=== PATIENT | male | born 1995 | race Caucasian/White ===

== ENCOUNTER 2020-04-16 06:56 | Emergency (ER) | payer OTHER ==
[2020-04-16] MEDS ORDERED: NA CHLORIDE 0.9% 1,000 ML ONE (07:20)
[2020-04-16 07:37] LABS: Absolute Lymphocytes (CBC) 1.1 K/uL (0.7-4.9); Basophils % 0.3 % (0-1.3); Hematocrit 38.4 % (39.6-49.0); Lymphocytes % 14.5 % (15.3-44.8); MPV 8.7 fL (7.6-11.3); RBC Red Blood Cell Count 4.18 M/uL (4.33-5.43)
--- NOTE | 2020-04-16 07:44 | RAD REPORT ---
EXAM DESCRIPTION: CT - Head Brain Wo Cont - 04/16/2020 7:34 am CLINICAL HISTORY: CONFUSEDhypotension, bradycardia COMPARISON: No comparisons TECHNIQUE: Axial 5 mm thick images of the head were obtained without IV contrast. All CT scans are performed using dose optimization technique as appropriate and may include automated exposure control or mA/KV adjustment according to patient size. FINDINGS: No intracranial hemorrhage, mass, edema or shift of mid-line structures. No acute cortical based infarction. Sulci are within normal limits for age. Richard matter- white matter junction is stil l present. No diffuse cerebral edema pattern. No abnormal extra-axial fluid collections. Ventricles a re normal in range. Physiologic calcifications are present. Patient is low-lying cerebellar tonsils a s a normal variant. Mastoid air cells and visualized portions of the paranasal sinuses are clear. No acute bony findings. IMPRESSION: Negative non-contrast CT head examination.
[2020-04-16 07:52] LABS: Protime INR 0.98
[2020-04-16 07:53] LABS: ALT/SGPT 21 U/L (12-78); AST/SGOT 18 U/L (15-37); Albumin 3.2 g/dL (3.4-5.0); Alkaline Phosphatase 83 U/L (45-117); BUN Blood Urea Nitrogen 13 mg/dL (7-18); Bicarbonate 26 mmol/L (21-32); Bilirubin Direct < 0.1 mg/dL (0-0.2); Bilirubin Total 0.2 mg/dL (0.2-1.0); Glucose Level 118 mg/dL (74-106); Potassium 3.9 mmol/L (3.5-5.1); Protein, Total 6.5 g/dL (6.4-8.2); Sodium Level 142 mmol/L (136-145)
--- NOTE | 2020-04-16 09:51 | EDPHYS ---
Physician Documentation [facility] Name: Jason Xie Age: 24 yrs Sex: Male : 1995 Arrival Date: 04/16/2020 Time: 06:56 Bed 4 Private MD: ED Physician Kole Bustillos HPI: 04/16 07:13 This 24 yrs old Male presents to ER via EMS with complaints of seizure, rn smoked synthetic marijuana. 07:13 The patient presents with a history of multiple seizures, an unknown number. Character rn of seizure(s): Motor activity: generalized, Incontinence: none, Circulation: the patient did not experience evidence of pulse disturbance. Seizure onset: this morning. Associated injury: Head/face:. Current symptoms: decreased level of consciousness. The patient has experienced similar episodes in the past. Per EMS, friend's mother called 911 for possible seizures, has hx of seizures but has not taken his tegretol for "long time", friend states hit head on bathtub, no LOC, patient reports feels fatigued and dehydrated. Reports smoked synthetic marijuana. . Historical: - Allergies: 07:06 Depakote; rv - Home Meds: 07:06 None [Active]; rv - PMHx: 07:06 None; rv - PSHx: 07:06 None; rv - Immunization history:: Adult Immunizations unknown. - Social history:: Smoking status: Patient reports the use of cigarette tobacco products, smokes one-half pack cigarettes per day. - Family history:: not pertinent. - Hospitalizations: : No recent hospitalization is reported. ROS: 07:13 Constitutional: Negative for fever, chills, and weight loss, Eyes: Negative for injury, rn pain, redness, and discharge, Neck: Negative for injury, pain, and swelling, Cardiovascular: Negative for chest pain, palpitations, and edema, Respiratory: Negative for shortness of breath, cough, wheezing, and pleuritic chest pain, Abdomen/GI: Negative for abdominal pain, nausea, vomiting, diarrhea, and constipation, MS/Extremity: Negative for injury and deformity, Skin: Negative for injury, rash, and discoloration, Neuro: Negative for headache, numbness, tingling Exam: 07:13 Constitutional: This is a well developed, well nourished patient who is awake, alert, rn seems either post-ictal or intoxicated Head/Face: Normocephalic, atraumatic. Eyes: Pupils equal round and reactive to light, extra-ocular motions intact. Lids and lashes normal. Conjunctiva and sclera are non-icteric and not injected. Cornea within normal limits. Periorbital areas with no swelling, redness, or edema. ENT: dry MM Cardiovascular: Regular rate and rhythm. No pulse deficits. Respiratory: No increased work of breathing, no retractions or nasal flaring. Abdomen/GI: soft, non-tender Skin: Warm, dry MS/ Extremity: Pulses equal, no cyanosis. Neurovascular intact. Full, normal range of motion. Equal circumference. Neuro: Awake and alert, GCS 15, oriented to person, place, time, and situation. Cranial nerves II-XII grossly intact. Motor strength 5/5 in all extremities. Sensory grossly intact. Cerebellar exam normal. 08:13 ECG was reviewed by the Attending Physician. rn Vital Signs: 07:05 BP 115 / 85; Pulse 67; Resp 16; Temp 97; Pulse Ox 100% ; Weight 83.91 kg; Height 5 ft. hb 8 in. (172.72 cm); Pain 0/10; 07:56 BP 96 / 62; Pulse 77; Resp 18; Pulse Ox 100% on R/A; em 09:00 BP 131 / 86; Pulse 80; Resp 16; Pulse Ox 100% on R/A; hb 10:00 BP 127 / 89; Pulse 68; Resp 18; Pulse Ox 99% on R/A; em 07:05 Body Mass Index 28.13 (83.91 kg, 172.72 cm) hb MDM: 07:01 Patient medically screened. rn 09:27 Differential diagnosis: seizure, dehydration, seizure. Data reviewed: vital signs, rn nurses notes, lab test result(s), EKG, radiologic studies, and as a result, I will discharge patient. 09:49 Counseling: I had a detailed discussion with the patient and/or guardian regarding: the rn historical points, exam findings, and any diagnostic results supporting the discharge/admit diagnosis, lab results, radiology results, the need for outpatient follow up, to return to the emergency department if symptoms worsen or persist or if there are any questions or concerns that arise at home. Response to treatment: the patient's symptoms have markedly improved after treatment, and as a result, I will discharge patient. 04/16 07:12 Order name: Acetaminophen; Complete Time: 07:56 rn 04/16 07:12 Order name: Basic Metabolic Panel; Complete Time: 07:56 rn 04/16 07:12 Order name: CBC with Diff; Complete Time: 07:56 rn 04/16 07:12 Order name: ETOH Level; Complete Time: 07:56 rn 04/16 07:12 Order name: Hepatic Function; Complete Time: 07:56 rn 04/16 07:12 Order name: PT-INR; Complete Time: 07:56 rn 04/16 07:12 Order name: CT Head Brain wo Cont; Complete Time: 07:46 rn 04/16 07:12 Order name: Ptt, Activated; Complete Time: 07:56 rn 04/16 07:12 Order name: Salicylate; Complete Time: 08:12 rn 04/16 07:12 Order name: Urine Drug Screen rn 04/16 07:12 Order name: EKG; Complete Time: 07:13 rn 04/16 08:41 Order name: Troponin (emerg Dept Use Only); Complete Time: 09:49 rn 04/16 09:22 Order name: Urine Dipstick--Ancillary (enter results) bd 04/16 07:12 Order name: EKG - Nurse/Tech; Complete Time: 09:20 rn 04/16 07:12 Order name: IV Saline Lock; Complete Time: 07:28 rn 04/16 07:12 Order name: Labs collected and sent; Complete Time: 07:28 rn 04/16 07:12 Order name: Urine Dipstick-Ancillary (obtain specimen); Complete Time: 09:20 rn EC:13 Rate is 66 beats/min. Rhythm is regular. QRS [place] is Normal. NC interval is normal. QRS rn interval is normal. QT interval is normal. No Q waves. T waves are Normal. ST Segment is elevated in leads II, III, aVF, V1, V2, V3, V4, V5, V6. Clinical impression: NSR w/ Non-specific ST/T Changes. Interpreted by me. Reviewed by me. Administered Medications: 07:25 Drug: NS 0.9% 1000 ml Route: IV; Rate: 1000 ml; Site: left antecubital; em 10:02 Follow up: IV Status: Completed infusion; IV Intake: 1000ml em Disposition: 04/16/20 09:50 Discharged to Home. Impression: Dehydration, Possible seizure, Synthetic marijuana use. - Condition is Stable. - Discharge Instructions: Dehydration, Adult, Seizure, Adult. - Medication Reconciliation Form, Thank You Letter, Antibiotic Education, Prescription Opioid Use form. - Follow up: Private Physician; When: As needed; Reason: Recheck today's complaints, Re-evaluation by your physician. - Problem is new. - Symptoms have improved. Signatures: Dispatcher [employer] Asher Allen RN RN Kole Sylvester MD MD rn Vicente, Ronaldo, RN RN rv Corrections: (The following items were deleted from the chart) 10:04 09:50 04/16/2020 09:50 Discharged to Home. Impression: Dehydration; Possible seizure; em Synthetic marijuana use. Condition is Stable. Forms are Medication Reconciliation Form, Thank You Letter, Antibiotic Education, Prescription Opioid Use. Follow up: Private Physician; When: As needed; Reason: Recheck today's complaints, Re-evaluation by your physician. Problem is new. Symptoms have improved. rn
--- NOTE | 2020-04-16 09:51 | ER ---
Nurse's Notes [facility] Name: Jason Xie Age: 24 yrs Sex: Male : 1995 Arrival Date: 04/16/2020 Time: 06:56 Bed 4 Private MD: Diagnosis: Dehydration;Possible seizure;Synthetic marijuana use Presentation: 04/16 07:03 Chief complaint: EMS states: PATIENT SMOKE SYNTHETIC MARIJUANA AND HAD A SEIZURE FOR rv 15-30 MINUTES ACCORDING TO THE FRIENDS. PATIENT WAS UNRESPONSIVE AT THE SCENE WITH HEART RATE OF 38 AND BLOOD PRESSURE OF 80/50. GIVEN 450ML BOLUS OF NS, HEART RATED AND BLOOD PRESSURE NORMALIZED. Coronavirus screen: Proceed with normal triage. Ebola Screen: No symptoms or risks identified at this time. Initial Sepsis Screen: Does the patient meet any 2 criteria? No. Patient's initial sepsis screen is negative. Does the patient have a suspected source of infection? No. Patient's initial sepsis screen is negative. Risk Assessment: Do you want to hurt yourself or someone else? Patient reports no desire to harm self or others. Onset of symptoms was April 16, 2020 at 06:30. 07:03 Method Of Arrival: EMS: [facility] 07:03 Acuity: RUPERTO 3 rv Triage Assessment: 07:06 General: Appears unkempt, Behavior is drowsy. Pain: Denies pain. EENT: No signs and/or rv symptoms were reported regarding the EENT system. Neuro: Level of Consciousness is awake, confused. Cardiovascular: Patient's skin is warm and dry. Respiratory: Airway is patent. Derm: Skin is intact. Historical: - Allergies: 07:06 Depakote; rv - Home Meds: 07:06 None [Active]; rv - PMHx: 07:06 None; rv - PSHx: 07:06 None; rv - Immunization history:: Adult Immunizations unknown. - Social history:: Smoking status: Patient reports the use of cigarette tobacco products, smokes one-half pack cigarettes per day. - Family history:: not pertinent. - Hospitalizations: : No recent hospitalization is reported. Screenin:11 Abuse screen: Denies threats or abuse. Denies injuries from another. Nutritional hb screening: No deficits noted. Tuberculosis screening: No symptoms or risk factors identified. Fall Risk Total Best Fall Scale indicates Low Risk Score (25-44 pts). Fall prevention measures have been instituted. Side Rails Up X 2 Frequent Obs/Assesments occuring As available Patient and Family Educated on Fall Prevention Program and strategies. Assessment: 07:20 General: Appears in no apparent distress. comfortable, Behavior is cooperative, em appropriate for age, drowsy. Pain: Denies pain. Neuro: Level of Consciousness is awake, Oriented to person, place, time, situation, Appropriate for age. Cardiovascular: Capillary refill < 3 seconds Patient's skin is warm and dry. Respiratory: Airway is patent Respiratory effort is even, unlabored, Respiratory pattern is regular, symmetrical. EENT: Sclera/Cornea are reddened in right eye and left eye. Derm: Skin is intact, is healthy with good turgor, Skin is pink, warm \T\ dry. Musculoskeletal: Capillary refill < 3 seconds, Range of motion: intact in all extremities. 07:31 Reassessment: Patient appears in no apparent distress at this time. pt wheeled to CT em via stretcher. 07:57 General: Appears in no apparent distress. comfortable, Behavior is calm, cooperative, em appropriate for age. 09:02 Reassessment: Patient appears in no apparent distress at this time. Patient and/or hb family updated on plan of care and expected duration. Pain level reassessed. Patient is alert, oriented x 3, equal unlabored respirations, skin warm/dry/pink. 10:00 Reassessment: Patient appears in no apparent distress at this time. Patient and/or em family updated on plan of care and expected duration. Pain level reassessed. Patient is alert, oriented x 3, equal unlabored respirations, skin warm/dry/pink. Vital Signs: 07:05 BP 115 / 85; Pulse 67; Resp 16; Temp 97; Pulse Ox 100% ; Weight 83.91 kg; Height 5 ft. hb 8 in. (172.72 cm); Pain 0/10; 07:56 BP 96 / 62; Pulse 77; Resp 18; Pulse Ox 100% on R/A; em 09:00 BP 131 / 86; Pulse 80; Resp 16; Pulse Ox 100% on R/A; hb 10:00 BP 127 / 89; Pulse 68; Resp 18; Pulse Ox 99% on R/A; em 07:05 Body Mass Index 28.13 (83.91 kg, 172.72 cm) ED Course: 06:56 Patient arrived in ED. mg2 07:01 Kole Bustillos MD is Attending Physician. rn 07:01 Asher Candelaria, MAXWELL is Primary Nurse. em 07:06 Triage completed. rv 07:07 Arm band placed on right wrist. Patient placed in the treatment room, on a stretcher, rv on equipment operat0r, on pulse oximetry. 07:20 Patient has correct armband on for positive identification. Bed in low position. Call em light in reach. Side rails up X2. Pulse ox on. NIBP on. 07:28 Maintain EMS IV. Dressing intact. Good blood return noted. Site clean \T\ dry. Gauge \T\ em site: 18 LAC. 07:34 CT Head Brain wo Cont In Process Unspecified. EDMS 10:00 No provider procedures requiring assistance completed. IV discontinued, intact, em bleeding controlled, No redness/swelling at site. Pressure dressing applied. Administered Medications: 07:25 Drug: NS 0.9% 1000 ml Route: IV; Rate: 1000 ml; Site: left antecubital; em 10:02 Follow up: IV Status: Completed infusion; IV Intake: 1000ml em Intake: 10:02 IV: 1000ml; Total: 1000ml. em Outcome: 09:50 Discharge ordered by . rn 10:00 Discharged to home ambulatory. em 10:00 Condition: good 10:00 Discharge instructions given to patient, Instructed on discharge instructions, follow up and referral plans. Demonstrated understanding of instructions, follow-up care. 10:04 Patient left the ED. em Signatures: Dispatcher [employer] EDOH Asher Candelaria, RN RN em Kole Bustillos MD MD rn Baxter, Heather, RN RN German Echols RN RN [facility] [place] Garland RN RN rv Corrections: (The following items were deleted from the chart) 07:58 07:56 BP 96 / 2; Pulse 7bpm; Resp 18bpm; Pulse Ox 100% RA; em em
[2020-04-16 10:08] LABS: Urine Blood 2+ (NEG); Urine Glucose NEGATIVE (NEG); Urine Protein 2+ (NEG); Urine Specific Gravity >1.030 (1.005-1.030)
[2020-04-16 10:09] LABS: Barbiturates NEGATIVE (NEGATIVE); Benzodiazepines NEGATIVE (NEGATIVE); Cocaine NEGATIVE (NEGATIVE); METHAMPHETAM POSITIVE (NEGATIVE); Methadone NEGATIVE (NEGATIVE); Opiates NEGATIVE (NEGATIVE); Phencyclidine NEGATIVE (NEGATIVE); THC Cannibis POSITIVE (NEGATIVE)
[2020-04-16 10:29] VITALS: TEMP 97
[2020-04-16 10:33] VITALS: BP 127/89; O2SAT 99
--- NOTE | 2020-04-17 07:02 | EKG ---
Test Date: 2020-04-16 Test Time: 08:12:08 Heel Blacker: HB MEASUREMENT RESULTS: Intervals: Rate: 66 TX: 134 QRSD: 88 QT: 380 QTc: 398 [place]: P: 49 TX: 134 QRS: 88 T: 56 INTERPRETIVE STATEMENTS: Normal sinus rhythm ST elevation, probably due to early repolarization Borderline ECG No previous ECG available for comparison Electronically Signed On 04-17-20 07:00:20 CDT by Luis Perez
== END 2020-04-16 10:04 | disposition home or self-care (01) ==
LOC: ER 06:56
DX: E86.0 Dehydration (principal); F12.90 Cannabis use, unspecified, uncomplicated
CPT/HCPCS: 96361; 93005; 85025; 80048; 36415; 80320; 80329 ×2; 85610; 80076; 80307 ×8; 85730; 81003; 84484; 70450; 96360; 99284; J7030

== ENCOUNTER 2020-05-13 13:48 | Emergency (ER) | payer OTHER ==
--- NOTE | 2020-05-13 13:58 | ER ---
Nurse's Notes [facility] Name: Jason Xie Age: 24 yrs Sex: Male : 1995 Arrival Date: 05/13/2020 Time: 13:50 Bed 6 Private MD: Diagnosis: Presentation: 05/13 13:50 Chief complaint: EMS states: PT TRANSPORTED AFTER INTERACTING WITH POLICE FOR SITTING bp ON SIDE OF STREET. NO MEDICAL COMPLAINT. Coronavirus screen: Proceed with normal triage. Ebola Screen: No symptoms or risks identified at this time. Initial Sepsis Screen: Does the patient meet any 2 criteria? No. Patient's initial sepsis screen is negative. Does the patient have a suspected source of infection? No. Patient's initial sepsis screen is negative. Risk Assessment: Do you want to hurt yourself or someone else? Patient reports no desire to harm self or others. Onset of symptoms is unknown. Care prior to arrival: Glucose check: 99. 13:50 Method Of Arrival: EMS: [facility] bp 13:50 Acuity: RUPERTO 5 bp Triage Assessment: 13:52 General: Appears in no apparent distress. comfortable, Behavior is calm, cooperative, bp appropriate for age. Pain: Denies pain. EENT: No deficits noted. Neuro: Level of Consciousness is awake, alert, obeys commands, Oriented to person, place, time, situation, Appropriate for age. Cardiovascular: Rhythm is sinus rhythm. Respiratory: No deficits noted. GI: No signs and/or symptoms were reported involving the gastrointestinal system. : No signs and/or symptoms were reported regarding the genitourinary system. Derm: No deficits noted. Musculoskeletal: No deficits noted. Historical: - Allergies: 13:52 Depakote; bp - Home Meds: 13:52 None [Active]; bp - PMHx: 13:52 Seizures; bp - Immunization history:: Adult Immunizations unknown. - Social history:: Smoking status: Patient reports the use of cigarette tobacco products, unknown amount. Screenin:54 Abuse screen: Denies threats or abuse. Denies injuries from another. Nutritional bp screening: No deficits noted. Tuberculosis screening: No symptoms or risk factors identified. Fall Risk None identified. Assessment: 13:54 General: SEE TRIAGE NOTE. bp 13:54 Reassessment: PT SEEN BY PRACTITIONER, NO MEDICAL COMPLAINT. PT [facility] bp [facility]. Vital Signs: 13:50 BP 117 / 72; Pulse 85; Resp 16; Temp 99.5; Pulse Ox 97% ; bp ED Course: 13:50 Patient arrived in ED. bp 13:52 Triage completed. bp 13:52 Yaron Isabel PA is PHCP. jr8 13:52 Cecilio Miller MD is Attending Physician. jr8 13:52 Arm band placed on. bp 13:54 Patient has correct armband on for positive identification. Bed in low position. Call bp light in reach. Side rails up X2. 13:55 No provider procedures requiring assistance completed. Patient did not have IV access bp during this emergency room visit. 13:59 Fransisco Degroot, RN is Primary Nurse. bp Administered Medications: No medications were administered Outcome: 13:55 Medical screen evaluation completed per provider. Patient declined treatment. bp 13:55 Condition: stable 13:55 Discharge instructions given to patient. 13:59 Patient left the ED. bp Signatures: Yaron Isabel PA PA jr8 Fransisco Degroot, RN RN bp
--- NOTE | 2020-05-13 14:00 | EDPHYS ---
Physician Documentation [facility] Name: Jason Xie Age: 24 yrs Sex: Male : 1995 Arrival Date: 05/13/2020 Time: 13:50 Bed 6 Private MD: ED Physician Cecilio Miller Historical: - Allergies: 05/13 13:52 Depakote; bp - Home Meds: 13:52 None [Active]; bp - PMHx: 13:52 Seizures; bp - Immunization history:: Adult Immunizations unknown. - Social history:: Smoking status: Patient reports the use of cigarette tobacco products, unknown amount. Vital Signs: 13:50 BP 117 / 72; Pulse 85; Resp 16; Temp 99.5; Pulse Ox 97% ; bp MDM: 13:52 Patient medically screened. jr8 13:57 ED course: Patient came in by EMS after EMS had received him from police. Patient jr8 stated that he was being harassed by police because he was sitting under a tree to cool off. Patient has no complaint and does not want to be evaluated . Administered Medications: No medications were administered Disposition: 17:03 Co-signature as Attending Physician, Cecilio Miller MD I agree with the assessment and [facility] plan of care. Disposition: 05/13/20 13:57 Patient left the facility after being seen by provider. - Patient left due to other. - Condition is Stable. Signatures: Cecilio Miller MD MD cha Roszak, Josh, PA PA jr8 Fransisco Degroot, RN RN bp Corrections: (The following items were deleted from the chart) 13:59 13:57 05/13/2020 13:57 Patient left the facility after being seen by provider. Reason bp stated they are leaving due to other. Condition is Stable. jr8
[2020-05-13 14:11] VITALS: BP 117/72; TEMP 99.5; O2SAT 97
== END 2020-05-13 13:59 | disposition left against medical advice (07) ==
LOC: ER 13:48
DX: Z00.00 Encounter for general adult medical examination without abnormal findings (principal)
CPT/HCPCS: 99284